=== PATIENT | female | born 1975 | race African-American/Black ===

== ENCOUNTER 2019-02-20 23:29 | Emergency (ER) | payer SELFPAY ==
[2019-02-20] MEDS ORDERED: Adacel (T-DAP) 0.5 ML SYRINGE ONE (23:37)
[2019-02-21] MEDS ORDERED: Lidocaine 1% (PF) 30 ML VIAL ONE (00:08)
[2019-02-21] MEDS ORDERED: Amoxicillin/Potassium Clav 875 MG TAB ONE (00:31)
[2019-02-21] MEDS ORDERED: Triple Antibiotic Oint 1 GM Packet ONE (00:33)
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
== END 2019-02-21 00:43 | disposition home or self-care (01) ==
LOC: NAV ERS 23:29
DX: S61.217A Laceration without foreign body of left little finger without damage to nail, initial encounter (principal); Z23 Encounter for immunization; Y04.1XXA Assault by human bite, initial encounter
CPT/HCPCS: 12001; 90471; 90715; J2001